=== PATIENT | female | born 1955 | race Caucasian/White ===

== ENCOUNTER 2022-09-04 13:05 | Inpatient (IN) | payer OTHER ==
[2022-09-04 14:38] VITALS: BMI 28.3
[2022-09-04] MEDS ORDERED: Acetaminophen 325 MG TAB PO PRN (17:06)
[2022-09-04] MEDS ORDERED: Ondansetron PF 4 MG/2 ML Vial IVP PRN (17:06)
[2022-09-04] MEDS ORDERED: Lisinopril 20 MG TAB PO SCH (17:15)
[2022-09-04 17:21] LABS: Hemoglobin 7.6 g/dL (12.0-16.0); Platelet Count 199 10x3/uL (130-400)
[2022-09-04] MEDS ORDERED: hydrALAZINE 25 MG TAB PO SCH (20:45)
[2022-09-04] MEDS: Pantoprazole 40 MG VIAL IVP SCH (21:16)
[2022-09-05] MEDS ORDERED: hydrALAZINE 25 MG TAB PO SCH (05:00)
[2022-09-05 06:21] LABS: Hemoglobin 7.5 g/dL (12.0-16.0); Mean Corpuscular Hemoglobin 22.4 pg (27.0-31.0); Mean Platelet Volume 9.6 fL (7.4-10.4); Platelet Count 205 10x3/uL (130-400); RBC Distribution Width 23.8 % (11.5-14.5); Red Blood Cell (RBC) Count 3.36 mill/uL (4.20-5.40); White Blood Cell (WBC) Count 5.3 10x3/uL (4.8-10.8)
[2022-09-05 06:30] LABS: Anion Gap 13 mmol/L (10-20); BUN (Urea Nitrogen) 10 mg/dL (9.8-20.1); Calc. Creatinine Clearance 71 mL/min (70-130); Calcium 8.1 mg/dL (7.8-10.44); Carbon Dioxide 22 mmol/L (23-31); Estimated GFR 76; Glucose 89 mg/dL (80-115); Potassium 3.6 mmol/L (3.5-5.1); Sodium 142 mmol/L (136-145)
[2022-09-05 06:33] LABS: Chloride 111 mmol/L (98-107)
[2022-09-05 07:02] LABS: #Eosinphils 0.1 thou/uL (0.0-0.7); #Lymphocytes 1.6 thou/uL (1.20-3.40); #Monocytes 0.6 thou/uL (0.11-0.59); #Neutrophils 2.8 thou/uL (1.40-6.50); %Basophils 0.8 % (0.0-1.0); %Eosinophils 2.7 % (0.0-10.0); %Lymphocytes 30.5 % (21.0-51.0); %Monocytes 12.2 % (0.0-10.0); %Neutrophils 53.9 % (42.0-75.0); Anisocytosis MODERATE=16-30 cells (100X) (0-5/hpf); MDiff Complete? YES; Microcytosis MODERATE=15-30 cells (100X) (0-5/hpf); Polychromasia SLIGHT = 2-3 cells (100X) (0-2/hpf)
[2022-09-05] MEDS ORDERED: FLU VACC QS2022-23(65YR UP)/PF 240 MCG/0.7 ML SYRINGE IM ONE (09:00)
[2022-09-05] MEDS: Pantoprazole 40 MG VIAL IVP SCH ×2 (09:18→22:24)
[2022-09-05] MEDS: Lisinopril 20 MG TAB PO SCH (09:18)
[2022-09-05] MEDS ORDERED: Lidocaine 1% PF 5 ML VIAL ONE (12:08)
[2022-09-05] MEDS ORDERED: PROPOFOL 200 MG/20 ML VIAL ONE (12:08)
[2022-09-05] MEDS ORDERED: Promethazine HCl 25 MG/ML VIAL IVPB PRN (12:20)
[2022-09-05] MEDS ORDERED: Promethazine HCl 25 MG/ML VIAL IM PRN (12:20)
[2022-09-05] MEDS ORDERED: Ondansetron HCl/PF 4 MG/2 ML Vial IVP PRN (12:20)
[2022-09-05] MEDS ORDERED: hydrALAZINE 20 MG/ML VIAL SLOW IVP SCH (18:00)
[2022-09-05] MEDS: hydrALAZINE 25 MG TAB PO SCH (22:24)
[2022-09-06 05:35] LABS: Anion Gap 15 mmol/L (10-20); BUN (Urea Nitrogen) 9 mg/dL (9.8-20.1); Calc. Creatinine Clearance 69 mL/min (70-130); Carbon Dioxide 20 mmol/L (23-31); Chloride 111 mmol/L (98-107); Estimated GFR 73; Glucose 90 mg/dL (80-115); Potassium 3.6 mmol/L (3.5-5.1); Sodium 142 mmol/L (136-145)
[2022-09-06 06:16] LABS: #Eosinphils 0.1 thou/uL (0.0-0.7); #Lymphocytes 1.3 thou/uL (1.20-3.40); #Monocytes 0.7 thou/uL (0.11-0.59); #Neutrophils 4.7 thou/uL (1.40-6.50); %Basophils 0.2 % (0.0-1.0); %Monocytes 10.7 % (0.0-10.0); %Neutrophils 69.1 % (42.0-75.0); Hemoglobin 8.7 g/dL (12.0-16.0); Mean Corpuscular HGB CONC 33.7 g/dL (32.0-36.0); Mean Corpuscular Hemoglobin 23.7 pg (27.0-31.0); Mean Corpuscular Volume 70.2 fl (78.0-98.0); Mean Platelet Volume 8.6 fL (7.4-10.4); Platelet Count 207 10x3/uL (130-400); RBC Distribution Width 24.4 % (11.5-14.5); Red Blood Cell (RBC) Count 3.67 mill/uL (4.20-5.40); White Blood Cell (WBC) Count 6.8 10x3/uL (4.8-10.8)
[2022-09-06] MEDS: Lisinopril 20 MG TAB PO SCH (10:23)
[2022-09-06] MEDS: hydrALAZINE 25 MG TAB PO SCH (10:24)
[2022-09-06] MEDS: Pantoprazole 40 MG VIAL IVP SCH (10:24)
[2022-09-06] MEDS ORDERED: cloNIDine 0.1 MG TAB PO SCH (14:30)
[2022-09-06 16:18] VITALS: BP 152/67; TEMP 98.7
== END 2022-09-06 18:02 | disposition home or self-care (01) | DRG 378 ==
LOC: 2SW 14:29
PROVIDERS: ADMIT Internal Medicine; ATTEND Internal Medicine
PROC: 30233N1 Transfusion of Nonautologous Red Blood Cells into Peripheral Vein, Percutaneous Approach (ICD-10-PCS; principal; 2022-09-04)
PROC: 0W3P8ZZ Control Bleeding in Gastrointestinal Tract, Via Natural or Artificial Opening Endoscopic (ICD-10-PCS; 2022-09-05)
DX: K26.4 Chronic or unspecified duodenal ulcer with hemorrhage (principal); D62 Acute posthemorrhagic anemia; K31.5 Obstruction of duodenum; I10 Essential (primary) hypertension; K22.70 Barrett's esophagus without dysplasia; K21.00 Gastro-esophageal reflux disease with esophagitis, without bleeding; K44.9 Diaphragmatic hernia without obstruction or gangrene; Z79.899 Other long term (current) drug therapy; Z90.49 Acquired absence of other specified parts of digestive tract; Z90.710 Acquired absence of both cervix and uterus
CPT/HCPCS: 36415; 36430; 80048; 85025; 86850; 86860; 86870; 86880; 86900; 86901; 86904; 86905; 86922; C9113; J0360; J2704; P9016; U0003; U0005

== ENCOUNTER 2022-12-06 10:39 | Emergency (ER) | payer MEDICARE, OTHER ==
[2022-12-06 11:46] LABS: #Eosinphils 0.1 thou/uL (0.0-0.7); #Lymphocytes 1.5 thou/uL (1.20-3.40); #Neutrophils 6.5 thou/uL (1.40-6.50); %Basophils 0.4 % (0.0-1.0); %Eosinophils 1.1 % (0.0-10.0); %Lymphocytes 16.1 % (21.0-51.0); %Monocytes 11.1 % (0.0-10.0); %Neutrophils 71.2 % (42.0-75.0); Hemoglobin 8.4 g/dL (12.0-16.0); Mean Corpuscular HGB CONC 31.1 g/dL (32.0-36.0); Mean Corpuscular Hemoglobin 18.9 pg (27.0-31.0); Mean Corpuscular Volume 60.7 fl (78.0-98.0); Mean Platelet Volume 7.2 fL (7.4-10.4); Platelet Count 276 10x3/uL (130-400); RBC Distribution Width 15.7 % (11.5-14.5); Red Blood Cell (RBC) Count 4.43 mill/uL (4.20-5.40); White Blood Cell (WBC) Count 9.1 10x3/uL (4.8-10.8)
[2022-12-06 11:51] LABS: ALT (SGPT) 13 U/L (8-55); AST (SGOT) 15 U/L (5-34); Albumin 3.5 g/dL (3.4-4.8); Alkaline Phosphatase 90 U/L (40-110); Anion Gap 14 mmol/L (10-20); BUN (Urea Nitrogen) 19 mg/dL (9.8-20.1); Bilirubin, Total 0.7 mg/dL (0.2-1.2); Calc. Creatinine Clearance 0 mL/min (70-130); Calcium 9.4 mg/dL (7.8-10.44); Carbon Dioxide 20 mmol/L (23-31); Chloride 109 mmol/L (98-107); Estimated GFR 52; Globulin 3.6 g/dL (2.4-3.5); Glucose 103 mg/dL (80-115); Potassium 4.4 mmol/L (3.5-5.1); Protein, Total 7.1 g/dL (5.8-8.1); Sodium 139 mmol/L (136-145)
[2022-12-06 11:57] LABS: Hypochromia MODERATE=16-30 cells (100X) (0-5/hpf); MDiff Complete? YES; Microcytosis MODERATE=15-30 cells (100X) (0-5/hpf); Ovalocytes SLIGHT = 2-5 cells (100X) (0-1/hpf); Platelet Morphology Comment Appears Adequate; Polychromasia SLIGHT = 2-3 cells (100X) (0-2/hpf); Reflex for Review?? NO
[2022-12-06 13:56] LABS: Bacteria/HPF None Seen HPF (None Seen); Bilirubin Negative (Negative); Blood, Urine Negative (Negative); Clarity Clear (Clear); Glucose, Urine (Dipstick) Normal (Negative); Ketone, Urine Negative (Negative); Leukocyte 75 Leu/uL (Negative); Nitrite Negative (Negative); Protein, Urine (Dipstick) Negative (Neg-Trace); RBC/HPF 0-3 HPF (0-3); Specific Gravity, Urine 1.016 (1.002-1.036); Squamous Epithelial None Seen HPF (0-3); Urobilinogen Normal mg/dL (Less than 2)
== END 2022-12-06 15:36 | disposition home or self-care (01) ==
LOC: ERS 10:39
DX: R10.9 Unspecified abdominal pain (principal); I10 Essential (primary) hypertension
CPT/HCPCS: 36415; 80053; 81003; 81015; 85025; 99284

== ENCOUNTER 2023-01-12 08:26 | Outpatient (CLI) | payer OTHER | END 2023-01-12 08:27 | disposition home or self-care (01) | LOC: RAD 08:26 | PROVIDERS: ATTEND Specialist | DX: K31.1 Adult hypertrophic pyloric stenosis (principal); K57.10 Diverticulosis of small intestine without perforation or abscess without bleeding | CPT/HCPCS: 74246 ==

== ENCOUNTER 2023-09-29 08:34 | Inpatient (IN) | payer OTHER ==
[2023-09-29 08:59] LABS: #Eosinphils 0.1 thou/uL (0.0-0.7); #Monocytes 0.6 thou/uL (0.11-0.59); #Neutrophils 6.3 thou/uL (1.40-6.50); %Basophils 0.5 % (0.0-1.0); %Eosinophils 1.1 % (0.0-10.0); %Lymphocytes 17.5 % (21.0-51.0); %Monocytes 6.8 % (0.0-10.0); %Neutrophils 73.9 % (42.0-75.0); Hematocrit 35.7 % (36.0-47.0); Hemoglobin 10.7 g/dL (12.0-16.0); Mean Corpuscular Hemoglobin 18.1 pg (27.0-31.0); Mean Corpuscular Volume 60.3 fl (78.0-98.0); Platelet Count 289 10x3/uL (130-400); RBC Distribution Width 18.5 % (11.5-14.5); Red Blood Cell (RBC) Count 5.92 mill/uL (4.20-5.40); White Blood Cell (WBC) Count 8.5 10x3/uL (4.8-10.8)
[2023-09-29 09:27] LABS: ALT (SGPT) 19 U/L (8-55); AST (SGOT) 18 U/L (5-34); Albumin 4.1 g/dL (3.4-4.8); Alkaline Phosphatase 114 U/L (40-110); Anion Gap 11 mmol/L (10-20); BUN (Urea Nitrogen) 18 mg/dL (9.8-20.1); Bilirubin, Total 0.8 mg/dL (0.2-1.2); Calc. Creatinine Clearance 0 mL/min (70-130); Calcium 9.7 mg/dL (7.8-10.44); Carbon Dioxide 27 mmol/L (23-31); Chloride 106 mmol/L (98-107); Estimated GFR 56; Globulin 3.6 g/dL (2.4-3.5); Glucose 129 mg/dL (80-115); Potassium 4.3 mmol/L (3.5-5.1); Protein, Total 7.7 g/dL (5.8-8.1); Sodium 140 mmol/L (136-145)
[2023-09-29 09:31] LABS: Troponin I 0.094 ng/mL (< 0.028)
[2023-09-29] MEDS ORDERED: Nitroglycerin 0.4 MG TAB (25 Tab Bottle) ONE (09:37)
[2023-09-29] MEDS ORDERED: Aspirin Chewable 81 MG TAB ONE (09:37)
[2023-09-29] MEDS ORDERED: Furosemide 40 MG TAB ONE (09:37)
[2023-09-29] MEDS ORDERED: Furosemide 40 MG (4 mL) VIAL ONE ×2 (09:38→15:30)
[2023-09-29 10:27] LABS: CellaVision Operator ID LAB.GE; Elliptocytes SLIGHT = 2-5 cells HPF (0-1); Hypochromia MODERATE=16-30 cells HPF (0-5); Large Platelets 5.9 % (0-5); Microcytosis MARKED = >30 cells HPF (0-5); Ovalocytes SLIGHT = 2-5 cells HPF (0-1); Platelet Adequacy Comment Platelets Normal; Polychromasia SLIGHT = 2-3 cells HPF (0-2); Target Cells SLIGHT = 2-5 cells HPF (0-1)
[2023-09-29] MEDS ORDERED: Enoxaparin 80 MG (0.8 mL) SYRINGE ONE (11:07)
[2023-09-29] MEDS ORDERED: Nitroglycerin 50 MG/250 ML BOT 250 ML ONE (11:08)
[2023-09-29] MEDS ORDERED: Iopamidol-370 76% 500 ML MDV (1 ML CHARGE) ONE (11:21)
[2023-09-29] MEDS ORDERED: Acetaminophen 325 MG TAB PO PRN (11:36)
[2023-09-29] MEDS ORDERED: Ondansetron ODT 4 MG TAB PO PRN (11:36)
[2023-09-29] MEDS ORDERED: Communication Order-Pharmacy FS SCH (12:40)
[2023-09-29] MEDS ORDERED: Nitroglycerin 50 MG/250 ML BOT 250 ML IVPB SCH ×3 (12:45→15:33)
[2023-09-29 12:57] LABS: Hemoglobin A1c 5.3 % (4.0-6.0)
[2023-09-29 13:00] LABS: Cardiac Risk 3.3 (Less than 4.5)
[2023-09-29 13:11] LABS: Troponin I 0.086 ng/mL (< 0.028)
[2023-09-29 13:35] LABS: Hemoglobin 9.9 g/dL (12.0-16.0); Platelet Count 272 10x3/uL (130-400)
[2023-09-29] MEDS ORDERED: Furosemide 40 MG (4 mL) VIAL SLOW IVP SCH (15:00)
[2023-09-29] MEDS ORDERED: Amlodipine 5 MG TAB PO SCH (15:30)
[2023-09-29] MEDS ORDERED: Hydrochlorothiazide 25 MG TAB PO SCH (15:45)
[2023-09-29] MEDS ORDERED: Lisinopril 10 MG TAB PO SCH (15:45)
[2023-09-29] MEDS ORDERED: Lisinopril 20 MG TAB ONE (15:51)
[2023-09-29] MEDS ORDERED: Enoxaparin 80 MG (0.8 mL) SYRINGE SC SCH (21:00)
[2023-09-29 22:45] VITALS: BMI 26.9
[2023-09-29] MEDS: Fluticasone Propionate Nasal Spray 16 gm Bottle NASAL SCH (22:51)
[2023-09-29] MEDS: Enoxaparin 80 MG (0.8 mL) SYRINGE SC SCH (22:52)
[2023-09-30 05:53] LABS: #Basophils 0.1 thou/uL (0.0-0.2); #Eosinphils 0.2 thou/uL (0.0-0.7); #Monocytes 0.8 thou/uL (0.11-0.59); #Neutrophils 3.9 thou/uL (1.40-6.50); %Basophils 0.8 % (0.0-1.0); %Eosinophils 2.7 % (0.0-10.0); %Monocytes 11.5 % (0.0-10.0); %Neutrophils 59.7 % (42.0-75.0); Hematocrit 34.5 % (36.0-47.0); Hemoglobin 10.2 g/dL (12.0-16.0); Mean Corpuscular HGB CONC 29.6 g/dL (32.0-36.0); Mean Corpuscular Hemoglobin 17.8 pg (27.0-31.0); Mean Corpuscular Volume 60.2 fl (78.0-98.0); Platelet Count 265 10x3/uL (130-400); RBC Distribution Width 18.2 % (11.5-14.5); Red Blood Cell (RBC) Count 5.73 mill/uL (4.20-5.40); White Blood Cell (WBC) Count 6.6 10x3/uL (4.8-10.8)
[2023-09-30 06:42] LABS: ALT (SGPT) 18 U/L (8-55); AST (SGOT) 16 U/L (5-34); Albumin 3.7 g/dL (3.4-4.8); Alkaline Phosphatase 101 U/L (40-110); Anion Gap 11 mmol/L (10-20); BUN (Urea Nitrogen) 22 mg/dL (9.8-20.1); Bilirubin, Total 0.9 mg/dL (0.2-1.2); Calc. Creatinine Clearance 45 mL/min (70-130); Calcium 9.3 mg/dL (7.8-10.44); Carbon Dioxide 30 mmol/L (23-31); Chloride 103 mmol/L (98-107); Estimated GFR 48; Globulin 3.2 g/dL (2.4-3.5); Glucose 98 mg/dL (80-115); Potassium 3.7 mmol/L (3.5-5.1); Protein, Total 6.9 g/dL (5.8-8.1); Sodium 140 mmol/L (136-145)
[2023-09-30] MEDS ORDERED: Hydrochlorothiazide 25 MG TAB PO SCH (09:00)
[2023-09-30] MEDS ORDERED: Amlodipine 5 MG TAB PO SCH (09:00)
[2023-09-30] MEDS: Enoxaparin 80 MG (0.8 mL) SYRINGE SC SCH ×2 (09:15→20:47)
[2023-09-30] MEDS: Lisinopril 20 MG TAB PO SCH (09:16)
[2023-09-30 12:00] LABS: Thyroid Peroxidase IgG Ab 4.6 IU/mL (<25 Normal)
[2023-09-30] MEDS ORDERED: Magnesium 2 GM/50 ML(in water) 2 GM in Premix 1 BAG IVPB SCH (19:00)
[2023-09-30 19:54] LABS: Magnesium 1.8 mg/dL (1.6-2.6); Potassium 3.1 mmol/L (3.5-5.1)
[2023-09-30] MEDS ORDERED: Potassium Chloride 20 MEQ TAB PO SCH (20:15)
[2023-09-30] MEDS: Fluticasone Propionate Nasal Spray 16 gm Bottle NASAL SCH (20:46)
[2023-09-30] MEDS: Atorvastatin Calcium 20 MG TAB PO SCH (20:47)
[2023-09-30] MEDS ORDERED: Atorvastatin Calcium 10 MG TAB PO SCH (21:00)
[2023-10-01 05:51] LABS: #Eosinphils 0.2 thou/uL (0.0-0.7); #Monocytes 0.8 thou/uL (0.11-0.59); %Basophils 0.3 % (0.0-1.0); %Eosinophils 3.7 % (0.0-10.0); %Lymphocytes 31.6 % (21.0-51.0); %Monocytes 13.6 % (0.0-10.0); %Neutrophils 50.1 % (42.0-75.0); Hematocrit 32.8 % (36.0-47.0); Hemoglobin 9.9 g/dL (12.0-16.0); Mean Corpuscular HGB CONC 30.2 g/dL (32.0-36.0); Mean Corpuscular Hemoglobin 18.3 pg (27.0-31.0); Mean Corpuscular Volume 60.7 fl (78.0-98.0); Platelet Count 252 10x3/uL (130-400); RBC Distribution Width 17.3 % (11.5-14.5)
[2023-10-01 06:22] LABS: ALT (SGPT) 15 U/L (8-55); AST (SGOT) 15 U/L (5-34); Albumin 3.3 g/dL (3.4-4.8); Alkaline Phosphatase 92 U/L (40-110); Anion Gap 14 mmol/L (10-20); BUN (Urea Nitrogen) 25 mg/dL (9.8-20.1); Bilirubin, Total 0.5 mg/dL (0.2-1.2); Calc. Creatinine Clearance 44 mL/min (70-130); Calcium 8.9 mg/dL (7.8-10.44); Carbon Dioxide 27 mmol/L (23-31); Chloride 104 mmol/L (98-107); Estimated GFR 48; Glucose 102 mg/dL (80-115); Magnesium 2.6 mg/dL (1.6-2.6); Potassium 3.9 mmol/L (3.5-5.1); Protein, Total 6.3 g/dL (5.8-8.1); Sodium 141 mmol/L (136-145)
[2023-10-01] MEDS ORDERED: ADENOSINE 60 MG/20 ML SDV ONE (09:42)
[2023-10-01] MEDS: Enoxaparin 80 MG (0.8 mL) SYRINGE SC SCH ×2 (10:57→21:05)
[2023-10-01] MEDS: Lisinopril 20 MG TAB PO SCH (10:58)
[2023-10-01] MEDS: Empagliflozin 10 MG TAB PO SCH (10:58)
[2023-10-01] MEDS: Fluticasone Propionate Nasal Spray 16 gm Bottle NASAL SCH (21:05)
[2023-10-01] MEDS: Atorvastatin Calcium 20 MG TAB PO SCH (21:05)
[2023-10-02 00:34] VITALS: TEMP 98.1
[2023-10-02 05:04] LABS: #Eosinphils 0.2 thou/uL (0.0-0.7); #Monocytes 0.9 thou/uL (0.11-0.59); #Neutrophils 2.9 thou/uL (1.40-6.50); %Basophils 0.7 % (0.0-1.0); %Eosinophils 3.3 % (0.0-10.0); %Lymphocytes 33.3 % (21.0-51.0); %Monocytes 14.5 % (0.0-10.0); Hematocrit 33.4 % (36.0-47.0); Mean Corpuscular HGB CONC 29.9 g/dL (32.0-36.0); Mean Corpuscular Hemoglobin 18.4 pg (27.0-31.0); Mean Corpuscular Volume 61.4 fl (78.0-98.0); Platelet Count 236 10x3/uL (130-400); RBC Distribution Width 17.1 % (11.5-14.5); Red Blood Cell (RBC) Count 5.44 mill/uL (4.20-5.40); White Blood Cell (WBC) Count 6.1 10x3/uL (4.8-10.8)
[2023-10-02 05:29] LABS: ALT (SGPT) 16 U/L (8-55); AST (SGOT) 17 U/L (5-34); Albumin 3.3 g/dL (3.4-4.8); Alkaline Phosphatase 88 U/L (40-110); Anion Gap 13 mmol/L (10-20); BUN (Urea Nitrogen) 27 mg/dL (9.8-20.1); Bilirubin, Total 0.6 mg/dL (0.2-1.2); Calc. Creatinine Clearance 39 mL/min (70-130); Carbon Dioxide 27 mmol/L (23-31); Chloride 105 mmol/L (98-107); Estimated GFR 41; Glucose 107 mg/dL (80-115); Protein, Total 6.3 g/dL (5.8-8.1); Sodium 141 mmol/L (136-145)
[2023-10-02 05:37] LABS: CellaVision Operator ID lab.abc; Microcytosis SLIGHT = 6-15 cells HPF (0-5); Platelet Adequacy Comment Platelets Normal; Target Cells SLIGHT = 2-5 cells HPF (0-1)
[2023-10-02] MEDS: Empagliflozin 10 MG TAB PO SCH (09:17)
[2023-10-02] MEDS: Lisinopril 20 MG TAB PO SCH (09:17)
[2023-10-02] MEDS: Enoxaparin 80 MG (0.8 mL) SYRINGE SC SCH (09:18)
[2023-10-02 10:54] VITALS: BP 136/63
== END 2023-10-02 11:57 | disposition home or self-care (01) | DRG 280 ==
LOC: ERS 08:34 → ERHOLD 11:48 → 2NO 21:33
PROVIDERS: ADMIT Emergency Medicine; ATTEND Emergency Medicine
DX: I11.0 Hypertensive heart disease with heart failure (principal); I21.A1 Myocardial infarction type 2; I50.21 Acute systolic (congestive) heart failure; I16.1 Hypertensive emergency; D56.9 Thalassemia, unspecified; R91.1 Solitary pulmonary nodule; D64.9 Anemia, unspecified; C54.1 Malignant neoplasm of endometrium; Z90.49 Acquired absence of other specified parts of digestive tract; Z98.890 Other specified postprocedural states; Z90.710 Acquired absence of both cervix and uterus; Z82.49 Family history of ischemic heart disease and other diseases of the circulatory system; Z79.899 Other long term (current) drug therapy
CPT/HCPCS: 36415; 71045; 71275; 78452; 80053; 80061; 83036; 83735; 83880; 84439; 84443; 84445; 84484; 85025; 85379; 86376; 93005; 93010; 93017; 93306; 96365; 96366; 96372; 96375; A9502; J0153; J1650; J1940; J3475; Q9967

== ENCOUNTER 2023-11-25 08:55 | Day surgery (SDC) | payer OTHER ==
[2023-11-25] MEDS ORDERED: diphenhydrAMINE 50 MG/ML VIAL ONE (09:56)
[2023-11-25] MEDS: diphenhydrAMINE 50 MG/ML VIAL IVP SCH (09:58)
[2023-11-25 10:17] VITALS: BP 135/96; TEMP 98.3
[2023-11-25] MEDS: Iron, Sodium Ferric Gluconate 125 MG in Sodium Chloride 0.9% 100 ML IVPB SCH (10:24)
== END 2023-11-25 11:48 | disposition home or self-care (01) ==
LOC: ONC/OP 08:55
PROVIDERS: ATTEND Student in an Organized Health Care Education/Training Program
DX: D50.9 Iron deficiency anemia, unspecified (principal)
CPT/HCPCS: 96365; J1200; J2916; J3490

== ENCOUNTER 2024-05-28 08:41 | Outpatient (CLI) | payer OTHER ==
[2024-05-28 09:53] LABS: #Basophils 0.03 10x3/uL (0.0-0.2); %Basophils 0.4 % (0.0-1.0); %Monocytes 9.9 % (0.0-10.0); %Neutrophils 67.4 % (42.0-75.0); Hematocrit 31.6 % (36.0-47.0); Hemoglobin 9.7 g/dL (12.0-16.0); Mean Corpuscular HGB CONC 30.7 g/dL (32.0-36.0); Mean Corpuscular Hemoglobin 19.1 pg (27.0-31.0); Mean Corpuscular Volume 62.3 fL (78.0-98.0); Platelet Count 239 10x3/uL (130-400); RBC Distribution Width 17.7 % (11.5-14.5); Red Blood Cell (RBC) Count 5.07 mill/uL (4.20-5.40)
[2024-05-28 10:01] LABS: INR-International Normal Ratio 1.3
[2024-05-28 10:15] LABS: Anion Gap 14 mmol/L (10-20); BUN (Urea Nitrogen) 31 mg/dL (9.8-20.1); Calc. Creatinine Clearance 0 mL/min (70-130); Calcium 9.4 mg/dL (7.8-10.44); Carbon Dioxide 23 mmol/L (23-31); Chloride 110 mmol/L (98-107); Estimated GFR 35; Glucose 115 mg/dL (80-115); Potassium 4.2 mmol/L (3.5-5.1); Sodium 143 mmol/L (136-145)
== END 2024-05-28 08:42 | disposition home or self-care (01) ==
LOC: LABBT 08:41
PROVIDERS: ATTEND Internal Medicine Cardiovascular Disease
DX: Z01.812 Encounter for preprocedural laboratory examination (principal); I25.5 Ischemic cardiomyopathy; I50.9 Heart failure, unspecified
CPT/HCPCS: 80048; 85025; 85610; 85730

== ENCOUNTER 2024-06-01 05:38 | Day surgery (SDC) | payer OTHER ==
[2024-05-28 09:07] VITALS: BMI 27.8
[2024-06-01] MEDS ORDERED: Gentamicin 80 MG/2 ML VIAL ONE (06:42)
[2024-06-01] MEDS ORDERED: CEFAZOLIN 2 GM VIAL ONE (06:43)
[2024-06-01] MEDS ORDERED: Etomidate 40 MG (20 mL) VIAL ONE (08:11)
[2024-06-01] MEDS ORDERED: Dexamethasone 4 mg/ml Vial ONE (08:11)
[2024-06-01] MEDS ORDERED: Lidocaine 1% PF 5 ML VIAL ONE (08:11)
[2024-06-01] MEDS ORDERED: fentaNYL 50 mcg/mL 1 mL Vial ONE (08:11)
[2024-06-01] MEDS ORDERED: Ondansetron PF 4 MG/2 ML Vial ONE (08:11)
[2024-06-01] MEDS ORDERED: PHENYLEPHRINE-NS 100 MCG/ML 10 ML SYRINGE ONE (08:32)
[2024-06-01] MEDS ORDERED: Vasopressin 20 UNITS/ML VIAL ONE (08:45)
== END 2024-06-01 12:41 | disposition home or self-care (01) ==
LOC: SDC 05:38
PROVIDERS: ATTEND Internal Medicine Cardiovascular Disease
PROC: 0JH608Z Insertion of Defibrillator Generator into Chest Subcutaneous Tissue and Fascia, Open Approach (ICD-10-PCS; principal; 2024-06-01)
PROC: 02H73KZ Insertion of Defibrillator Lead into Left Atrium, Percutaneous Approach (ICD-10-PCS; 2024-06-01)
PROC: 02HL3KZ Insertion of Defibrillator Lead into Left Ventricle, Percutaneous Approach (ICD-10-PCS; 2024-06-01)
DX: I11.0 Hypertensive heart disease with heart failure (principal); I50.22 Chronic systolic (congestive) heart failure; I25.5 Ischemic cardiomyopathy; I48.19 Other persistent atrial fibrillation; D50.0 Iron deficiency anemia secondary to blood loss (chronic); I25.10 Atherosclerotic heart disease of native coronary artery without angina pectoris; Z86.73 Personal history of transient ischemic attack (TIA), and cerebral infarction without residual deficits; Z79.01 Long term (current) use of anticoagulants; Z95.818 Presence of other cardiac implants and grafts; Z79.899 Other long term (current) drug therapy
CPT/HCPCS: 33249; 71045; 93005; C1721; C1777; C1898; J1100; J1580; J2405; J3010; 93010

== ENCOUNTER 2024-06-29 13:27 | Inpatient (IN) | payer MEDICARE, OTHER ==
[2024-06-29] MEDS ORDERED: dilTIAZem 25 MG/5 ML VIAL ONE (14:22)
[2024-06-29 14:31] LABS: ALT (SGPT) 12 U/L (8-55); AST (SGOT) 21 U/L (5-34); Albumin 3.8 g/dL (3.4-4.8); Alkaline Phosphatase 158 U/L (40-110); Anion Gap 17 mmol/L (10-20); BUN (Urea Nitrogen) 27 mg/dL (9.8-20.1); Bilirubin, Total 0.6 mg/dL (0.2-1.2); Calc. Creatinine Clearance 0 mL/min (70-130); Calcium 9.4 mg/dL (7.8-10.44); Carbon Dioxide 19 mmol/L (23-31); Chloride 113 mmol/L (98-107); Estimated GFR 32; Globulin 4.2 g/dL (2.4-3.5); Glucose 106 mg/dL (80-115); Magnesium 2.1 mg/dL (1.6-2.6); Potassium 4.8 mmol/L (3.5-5.1); Sodium 144 mmol/L (136-145)
[2024-06-29 14:36] LABS: Troponin I 0.042 ng/mL (< 0.028)
[2024-06-29 14:54] LABS: #Basophils 0.05 10x3/uL (0.0-0.2); %Basophils 0.6 % (0.0-1.0); %Eosinophils 1.7 % (0.0-10.0); %Lymphocytes 17.5 % (21.0-51.0); %Neutrophils 69.7 % (42.0-75.0); Hematocrit 33.5 % (36.0-47.0); Hemoglobin 10.2 g/dL (12.0-16.0); Mean Corpuscular HGB CONC 30.4 g/dL (32.0-36.0); Mean Corpuscular Hemoglobin 19.3 pg (27.0-31.0); Mean Corpuscular Volume 63.3 fL (78.0-98.0); Platelet Count 281 10x3/uL (130-400); RBC Distribution Width 16.7 % (11.5-14.5); Red Blood Cell (RBC) Count 5.29 mill/uL (4.20-5.40)
[2024-06-29 15:00] LABS: Anisocytosis MODERATE=16-30 cells HPF (0-5); Hypochromia SLIGHT = 6-15 cells HPF (0-5); Microcytosis SLIGHT = 6-15 cells HPF (0-5); Ovalocytes SLIGHT = 2-5 cells HPF (0-1); Platelet Adequacy Comment Platelets Normal; Polychromasia SLIGHT = 2-3 cells HPF (0-2); Schistocytes SLIGHT = 2-5 cells HPF (0-1); Target Cells SLIGHT = 2-5 cells HPF (0-1)
[2024-06-29] MEDS ORDERED: Diltiazem HCl/D5W 125 MG in Premix 1 BAG IVPB SCH (16:00)
[2024-06-29 16:24] VITALS: BMI 26.9
[2024-06-29] MEDS ORDERED: dilTIAZem 125 MG in Sodium Chloride 0.9% 100 ML IVPB SCH ×2 (16:30→16:45)
[2024-06-29] MEDS: Sacubitril 24MG/Valsartan 26 MG TAB PO SCH (17:10)
[2024-06-29] MEDS: Non-Formulary Item 1 EACH (Cephalexin [Keflex] 500 MG Cap) PO SCH (17:11)
[2024-06-29] MEDS ORDERED: Furosemide 40 MG (4 mL) VIAL ONE (17:17)
[2024-06-29] MEDS: Furosemide 20 MG (2 mL) VIAL SLOW IVP SCH (17:22)
[2024-06-29 19:23] LABS: Troponin I 0.045 ng/mL (< 0.028)
[2024-06-29 19:36] LABS: Free T4 (Free Thyroxine) 1.93 ng/dL (0.70-1.48); Thyroid Stimulating Hormone Less than 0.0083 uIU/mL (0.35-4.94)
[2024-06-29] MEDS: Pantoprazole DR 40 MG TAB PO SCH (20:37)
[2024-06-29] MEDS: Apixaban 5 MG TAB PO SCH (20:37)
[2024-06-30] MEDS: Diltiazem HCl/D5W 125 MG in Premix 1 BAG IVPB SCH (01:08)
[2024-06-30 04:45] LABS: #Basophils 0.04 10x3/uL (0.0-0.2); %Basophils 0.5 % (0.0-1.0); %Eosinophils 4.4 % (0.0-10.0); %Lymphocytes 21.1 % (21.0-51.0); %Monocytes 10.3 % (0.0-10.0); %Neutrophils 63.4 % (42.0-75.0); Hematocrit 29.8 % (36.0-47.0); Hemoglobin 9.1 g/dL (12.0-16.0); Mean Corpuscular HGB CONC 30.5 g/dL (32.0-36.0); Mean Corpuscular Hemoglobin 18.6 pg (27.0-31.0); Mean Corpuscular Volume 61.1 fL (78.0-98.0); Platelet Count 208 10x3/uL (130-400); RBC Distribution Width 16.2 % (11.5-14.5); Red Blood Cell (RBC) Count 4.88 mill/uL (4.20-5.40)
[2024-06-30 04:59] LABS: ALT (SGPT) 9 U/L (8-55); AST (SGOT) 14 U/L (5-34); Albumin 3.1 g/dL (3.4-4.8); Alkaline Phosphatase 125 U/L (40-110); Anion Gap 12 mmol/L (10-20); BUN (Urea Nitrogen) 22 mg/dL (9.8-20.1); Bilirubin, Total 0.7 mg/dL (0.2-1.2); Calc. Creatinine Clearance 40 mL/min (70-130); Calcium 8.6 mg/dL (7.8-10.44); Carbon Dioxide 22 mmol/L (23-31); Chloride 110 mmol/L (98-107); Estimated GFR 40; Globulin 3.1 g/dL (2.4-3.5); Glucose 104 mg/dL (80-115); Potassium 3.4 mmol/L (3.5-5.1); Protein, Total 6.2 g/dL (5.8-8.1); Sodium 141 mmol/L (136-145)
[2024-06-30] MEDS: Potassium Chloride 20 MEQ TAB PO SCH (07:55)
[2024-06-30] MEDS ORDERED: Furosemide 20 MG TAB PO SCH (09:00)
[2024-06-30] MEDS: Methimazole 10 MG TAB PO SCH (10:18)
[2024-06-30] MEDS: Aspirin Chewable 81 MG TAB PO SCH (10:18)
[2024-06-30] MEDS: Sacubitril 24MG/Valsartan 26 MG TAB PO SCH (10:18)
[2024-06-30] MEDS: Atorvastatin Calcium 40 MG TAB PO SCH (10:18)
[2024-06-30] MEDS: Empagliflozin 10 MG TAB PO SCH (10:20)
[2024-06-30] MEDS: Furosemide 20 MG (2 mL) VIAL SLOW IVP SCH (10:21)
[2024-06-30] MEDS: dilTIAZem ER 60 MG CAP PO SCH (10:26)
[2024-06-30] MEDS ORDERED: Diltiazem HCl/D5W 125 MG in Premix 1 BAG IVPB SCH (12:18)
[2024-07-01 04:45] LABS: #Basophils 0.03 10x3/uL (0.0-0.2); %Basophils 0.4 % (0.0-1.0); %Lymphocytes 19.9 % (21.0-51.0); %Monocytes 8.6 % (0.0-10.0); %Neutrophils 66.7 % (42.0-75.0); Hematocrit 29.7 % (36.0-47.0); Mean Corpuscular HGB CONC 30.3 g/dL (32.0-36.0); Mean Corpuscular Hemoglobin 18.6 pg (27.0-31.0); Mean Corpuscular Volume 61.2 fL (78.0-98.0); Platelet Count 251 10x3/uL (130-400); RBC Distribution Width 16.4 % (11.5-14.5); Red Blood Cell (RBC) Count 4.85 mill/uL (4.20-5.40)
[2024-07-01 04:56] LABS: ALT (SGPT) 8 U/L (8-55); AST (SGOT) 13 U/L (5-34); Albumin 2.9 g/dL (3.4-4.8); Alkaline Phosphatase 117 U/L (40-110); Anion Gap 11 mmol/L (10-20); BUN (Urea Nitrogen) 24 mg/dL (9.8-20.1); Bilirubin, Total 0.6 mg/dL (0.2-1.2); Calc. Creatinine Clearance 37 mL/min (70-130); Calcium 8.3 mg/dL (7.8-10.44); Carbon Dioxide 21 mmol/L (23-31); Chloride 113 mmol/L (98-107); Estimated GFR 37; Globulin 3.1 g/dL (2.4-3.5); Glucose 108 mg/dL (80-115); Potassium 3.9 mmol/L (3.5-5.1); Sodium 141 mmol/L (136-145)
[2024-07-01] MEDS ORDERED: dilTIAZem ER 60 MG CAP PO SCH (09:00)
[2024-07-01] MEDS: Furosemide 20 MG TAB PO SCH (09:46)
[2024-07-01 15:21] VITALS: BP 116/71; TEMP 98
== END 2024-07-01 15:55 | disposition home or self-care (01) | DRG 291 ==
LOC: ERS 13:27 → ERHOLD 15:45 → 2SE 20:24
PROVIDERS: ADMIT Family Medicine; ATTEND Family Medicine
DX: I13.0 Hypertensive heart and chronic kidney disease with heart failure and stage 1 through stage 4 chronic kidney disease, or unspecified chronic kidney disease (principal); I50.23 Acute on chronic systolic (congestive) heart failure; N17.9 Acute kidney failure, unspecified; I48.91 Unspecified atrial fibrillation; N18.30 Chronic kidney disease, stage 3 unspecified; E03.9 Hypothyroidism, unspecified; E78.5 Hyperlipidemia, unspecified; I25.10 Atherosclerotic heart disease of native coronary artery without angina pectoris; E05.90 Thyrotoxicosis, unspecified without thyrotoxic crisis or storm; I25.2 Old myocardial infarction; Z95.810 Presence of automatic (implantable) cardiac defibrillator; Z79.899 Other long term (current) drug therapy; Z79.01 Long term (current) use of anticoagulants; Z79.82 Long term (current) use of aspirin; Z86.73 Personal history of transient ischemic attack (TIA), and cerebral infarction without residual deficits; Z90.710 Acquired absence of both cervix and uterus; Z90.49 Acquired absence of other specified parts of digestive tract; E87.6 Hypokalemia
CPT/HCPCS: 36415; 71045; 80053; 83735; 83880; 84439; 84443; 84481; 84484; 85025; 93005; J1940

== ENCOUNTER 2024-09-04 07:33 | Outpatient (CLI) | payer OTHER ==
[2024-09-04] MEDS ORDERED: Barium Sulfate 96% 176 GM BOT (xray ONLY) ONE (07:48)
[2024-09-04] MEDS ORDERED: E-Z-HD 98% W/W 340GM BOT (x-ray ONLY) ONE (07:48)
== END 2024-09-04 07:34 | disposition home or self-care (01) ==
LOC: RAD 07:33
PROVIDERS: ATTEND Internal Medicine
DX: K21.9 Gastro-esophageal reflux disease without esophagitis (principal); K31.5 Obstruction of duodenum; R68.81 Early satiety; R11.2 Nausea with vomiting, unspecified
CPT/HCPCS: 74246